=== PATIENT | female | born 2000 | race Asian ===

== ENCOUNTER 2018-09-25 06:51 | Day surgery (SDC) | payer BC ==
[2018-09-23 14:49] VITALS: BMI 24.4
[2018-09-25] MEDS ORDERED: MIDAZOLAM HCL 2 MG/2 ML SINGLE DOSE VIAL ONE (07:19)
[2018-09-25] MEDS ORDERED: PROPOFOL 20 ML ONE ×4 (07:19)
[2018-09-25] MEDS ORDERED: SUCCINYLCHOLINE CHLORIDE 200 MG/10 ML VIAL ONE (07:19)
[2018-09-25] MEDS ORDERED: LIDOCAINE 1%/EPI 1:100000 (20 ML MULTI DOSE VIAL) ONE (07:26)
[2018-09-25] MEDS ORDERED: BUPIVACAINE HCL/PF 2.5 MG/ML - 30 ML VIAL IJ ONE (07:26)
[2018-09-25] MEDS ORDERED: BACITRACIN 15 GM TUBE TOPICAL OINTMENT ONE (08:16)
[2018-09-25] MEDS ORDERED: ONDANSETRON 4 MG/2 ML VIAL IVPUSH PRN ×2 (08:37→08:45)
[2018-09-25] MEDS ORDERED: oxyCODONE HCL 5 MG TABLET PO PRN ×2 (08:37)
[2018-09-25] MEDS ORDERED: PROMETHAZINE HCL 25 MG/1 ML VIAL IVPUSH PRN (08:37)
[2018-09-25] MEDS ORDERED: LACTATED RINGERS SOLUTION 1,000 ML IV SCH (08:45)
[2018-09-25] MEDS ORDERED: ACETAMINOPHEN 325 MG TABLET (FP) PO PRN (08:45)
[2018-09-25] MEDS ORDERED: ACETAMINOPHEN 325 MG TABLET (FP) ONE (09:22)
[2018-09-25 09:54] VITALS: TEMP 98.5
[2018-09-25 10:04] VITALS: BP 107/64; PULSE 86
--- NOTE | 2018-09-29 14:30 | OP ---
DATE OF OPERATION: 09/25/2018 PREOPERATIVE DIAGNOSIS: Bilateral cleft lip and palate deformities. POSTOPERATIVE DIAGNOSIS: Bilateral cleft lip and palate deformities. PROCEDURE: Division and inset of cross-lip Benito flap. ATTENDING SURGEON: Boris Burgos MD ANESTHESIA: IV sedation plus local. ESTIMATED BLOOD LOSS: 10 mL. SPECIMEN: None. COMPLICATIONS: None. CONDITION: Stable to recovery room, extubated. 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 She has undergone several previous surgeries for correction of her congenital deformities. The patient most recently has undergone a first-stage upper lip reconstruction with an Benito flap. The Benito flap has remained connected for 2 weeks and has healed nicely. The patient is therefore brought back to the operating room for division and inset of the cross-lip flap. The risks, benefits, and alternatives were discussed with the patient and her parents preoperatively in detail and all questions were answered. The risks include but are not limited to bleeding, infection, pain, need for revision or further surgery, residual lip deformity, damage to neighboring structures including nerves, arteries, veins, and tendons, partial or complete lip flap loss. The patient understands these risks and has elected to proceed with surgery. PROCEDURE: After proper identification and marking of the patient in the preoperative holding area, the patient was transported to the operating room and placed supine on the table, where all noninvasive anesthesia monitors were applied. Intravenous access was established. IV sedation at this point was given. SCD boots were applied to bilateral lower extremities. At this point, the planned incision lines were outlined with a surgical marking pen and they were infiltrated with 1% lidocaine with 1:100,000 units of epinephrine. The patient's face and mouth were then prepped and draped sterilely. After a timeout was performed, a number 15 blade was used to incise the pedicle of the cross-lip flap. Once the pedicle was completely transected, electrocautery was used to coagulate the inferior labial artery. A curved iris scissors was then used to debride the lower lip edges and the lower lip mucosal edges were closed primarily with a 5-0 plain gut in a simple interrupted fashion. Attention at this point was turned towards the upper lip. The vermilion edges were freshened with a curved iris scissors on the right side. The debridement of the edges continued into the wet vermilion, where there was noted to be a slight step-off at the site of the pedicle attachment. The mucosal edges were debrided on both the lateral lip segment as well as the Benito flap. Once they were adequately debrided, the mucosal edges were reapproximated with a 5-0 plain but in a simple interrupted fashion. Once all incisions in the lip were closed, the remainder of the nylon sutures from the first stage were carefully removed, and at this point the patient's face and mouth were cleansed and bacitracin ointment was applied. The patient at this point was slowly awakened and was transported to the recovery room in stable condition. BORIS BURGOS M.D. [id number]
== END 2018-09-25 09:45 | disposition home or self-care (01) ==
LOC: FASU 06:51
PROVIDERS: ATTEND Plastic Surgery
PROC: 0CQ00ZZ Repair Upper Lip, Open Approach (ICD-10-PCS; principal; 2018-09-25 07:30)
DX: Q37.4 Cleft hard and soft palate with bilateral cleft lip (principal)
CPT/HCPCS: 81025; 94760